=== PATIENT | female | born 1940 | race Caucasian/White ===

== ENCOUNTER 2021-11-30 19:09 | Inpatient (IN) | payer MEDICARE ==
[~2021-11-30] VITALS: Ht 167.6 cm; Wt 81.6 kg
--- NOTE | 2021-11-30 20:50 | NUR ---
BIBDTR C/O PT FEELING DEPRESSED, CARE FOR SELF LESS, WANTING PSYCH EVAL. PLACED IN BED 12. VITALS CHECKED. FAMILY MEMBER AT BEDSIDE
--- NOTE | 2021-11-30 21:00 | NUR ---
COVID SWAB DONE AND SENT TO LAB
[2021-11-30 21:19] LABS: BASOPHILS % (AUTO) 0.3 % (0.0-2.0); EOSINOPHILS % (AUTO) 2.9 % (0.0-6.0); HEMATOCRIT 42 % (33-45); HEMOGLOBIN 13.4 g/dL (11.5-14.8); LYMPHOCYTES # (AUTO) 3.8 K/uL (0.8-4.8); LYMPHOCYTES % (AUTO) 27.1 % (20.0-44.0); MEAN CORPUSCULAR HGB CONC 32 g/dl (31.0-36.0); MEAN CORPUSCULAR VOLUME 88 fL (82-100); MONOCYTES % (AUTO) 7.2 % (2.0-12.0); NEUTROPHILS # (AUTO) 8.8 K/uL (1.8-8.9); NEUTROPHILS % (AUTO) 62.5 % (43.0-81.0); PLATELET COUNT (AUTO) 350 K/uL (150-450); RED BLOOD CELL COUNT(AUTO) 4.83 MIL/uL (4.0-5.2); WHITE BLOOD COUNT (AUTO) 14.1 K/uL (4.3-11.0)
[2021-11-30 21:42] LABS: ALANINE AMINOTRANSFERASE 22 U/L (12-78); ALBUMIN 3.7 g/dL (3.4-5.0); ALKALINE PHOSPHATASE 57 U/L (46-116); ASPARTATE AMINOTRANSFERASE 9 U/L (15-37); BILIRUBIN,TOTAL 0.2 mg/dL (0.2-1.0); CALCIUM, SERUM 9.8 mg/dL (8.5-10.1); CARBON DIOXIDE 27 mmol/L (21-32); CHLORIDE 105 mmol/L (98-107); CREATININE 0.8 mg/dL (0.6-1.3); GLUCOSE 105 mg/dL (74-106); POTASSIUM 3.7 mmol/L (3.5-5.1); SODIUM SERUM 139 mmol/L (136-145); UREA NITROGEN, BLOOD 17 mg/dL (7-18)
[2021-11-30 21:49] LABS: ALCOHOL, BLOOD < 3 mg/dL (0-0)
--- NOTE | 2021-11-30 21:50 | NUR ---
PATIENT STILL CANNOT PASS OUT URINE. DAUGHTER SAID THEY WILL GIVE IT A TRY IN FEW MINUTES.
[2021-11-30 22:52] LABS: BILIRUBIN,URINE NEGATIVE (NEGATIVE); COLOR,URINE YELLOW (YELLOW); LEUKOCYTE ESTERASE ,URINE TRACE (NEGATIVE); NITRITE, URINE NEGATIVE (NEGATIVE); PROTEIN,URINE NEGATIVE (NEGATIVE); UGLUCOSE NEGATIVE (NEGATIVE); UROBILINOGEN,URINE 0.2 EU/dL (0.2)
[2021-11-30 23:15] LABS: SQUAMOUS EPITHELIAL CELL,UR Moderate /HPF (None Seen)
[2021-11-30 23:18] LABS: BACTERIA,URINE None seen /HPF (None Seen)
[2021-11-30 23:19] LABS: RBC,URINE 0-2 /HPF (0-2)
[2021-11-30] MEDS ORDERED: PARO10TA86 PO (23:41)
[2021-11-30] MEDS ORDERED: LITH600C PO (23:41)
[2021-11-30] MEDS ORDERED: AMLO2.5T4 PO (23:41)
[2021-11-30] MEDS ORDERED: RISP2TAB85 PO (23:48)
[2021-11-30] MEDS ORDERED: ALPR1TAB7 PO (23:48)
[2021-11-30] MEDS ORDERED: RISP0.5T65 PO (23:48)
--- NOTE | 2021-12-01 00:10 | NUR ---
REPORT GIVEN TO FA RN FOR CONTINUATION OF CARE.
--- NOTE | 2021-12-01 00:41 | NUR ---
PATIENT BEING TRANSFERRED TO [facility]
--- NOTE | 2021-12-01 00:45 | NUR ---
pt transported to room 218 via wheelchair without incident.
[2021-12-01] MEDS ORDERED: LORAZEPAM 0.5 MG TABLET PO PRN (01:30)
[2021-12-01] MEDS ORDERED: TEMAZEPAM 7.5 MG CAPSULE PO PRN (01:30)
[2021-12-01] MEDS ORDERED: MAGNESIUM HYDROXIDE 30 ML UDC PO PRN (01:30)
[2021-12-01] MEDS ORDERED: BLOOD SUGAR DIAGNOSTIC 1 EACH STRIP IN ONE (01:30)
--- NOTE | 2021-12-01 02:13 | NUR ---
GPS RN ADMITTING NOTES: PATIENT ARRIVED THIS UNIT ON A W/C WITH AN ER ESCORT. PATIENT IS VOLUNTARY. PER ER REPORT, PATIENT WAS BROUGHT TO ER BY DAUGHTER WITH COMPLAIN THAT PT HAS BEEN HAVING INCREASED DEPRESSION AND NOT CARING FOR HERSELF. PER DAUGHTER, PATIENT HAS BEEN DEALING WITH DEPRESSION FOR YEARS AND PATIENT PSYCHIATRIST RECENTLY MADE CHANGES TO HER MEDS BUT PATIENT CONDITION REMAINS THE SAME. UPON FACE TO FACE EVALUATION, PATIENT IS A/O X2-3, APPEARS DEPRESSED AND TIRED, FLAT AFFECT, ANXIOUS, FORGETFUL, PASSIVE, COOPERATIVE, PATIENT IS A POOR HISTORIAN, IT TOOK A WHILE FOR PATIENT TO REMEMBER DAY AND YEAR. REFUSED TO SIGN ADMISSION PAPER WORK BECAUSE PER PATIENT, "I AM TIRED AND MY WRITING IS HORRIBLE BECAUSE I HAD COVID EARLIER IN THE YEAR THAT AFFECTED MY HANDS". PATIENT BS90MG/DL. SKIN ASSESSMENT DONE, SKIN INTACT. REFUSED PNEUMONIA VACCINE. NO S/S OF DISTRESS, RESPIRATION EVEN AND UNLABORED WITH EQUAL RISE AND FALL OF THE CHEST, ON ROOM AIR. PATIENT IS UNDER THE PSYCHIATRIC CARE OF DR SHINE AND [facility]. PATIENT IS ORIENTED TO STAFF AND UNIT. PATIENT RIGHTS BOOKLET AND PRESCRIPTION MEDICATION GUIDE GIVEN TO PATIENT. PATIENT OFFERED FLUID AND SNACKS TOLERATED. ALL PATIENT CARE NEEDS HAVE BEEN MET ANTICIPATED. BED IN LOW LOCKED POSITION, SIDE RAILS UP X2 FOR SAFETY. WILL CONTINUE TO MONITOR FOR SAFETY, MOOD AND BEHAVIOR.
[2021-12-01] MEDS: ACETAMINOPHEN 325 MG TABLET PO PRN (03:57)
--- NOTE | 2021-12-01 04:03 | NUR ---
GPS RN NOTES: UNABLE TO SCAN PATIENT WRIST BAND. PATIENT C/O HEADACHE. TYLENOL 650MG GIVEN PO AT 0357. WILL CONTINUE TO MONITOR.
[2021-12-01 04:17] VITALS: BP 140/82
--- NOTE | 2021-12-01 06:45 | NUR ---
GPS RN NOTES: PATIENT DAUGHTER MEET KEATING HAS BEEN NOTIFIED OF PATIENT ADMISSION TO GPS AT 0635.
--- NOTE | 2021-12-01 07:03 | NUR ---
GPS RN CLOSING NOTES: PATIENT IS CURRENTLY SLEEPING. PATIENT SLEPT 5HRS THIS SHIFT. NO S/S OF DISTRESS. RESPIRATION EVEN AND UNLABORED WITH EQUAL RISE AND FALL OF THE CHEST, ON ROOM AIR. ALL PATIENT CARE NEEDS HAVE BEEN MET ANTICIPATED. WILL CONTINUE TO MONITOR Q15 FOR SAFETY, MOOD AND BEHAVIOR AND ENDORSE TO AM SHIFT.
[2021-12-01 08:00] VITALS: BP 162/88
[2021-12-01] MEDS: AMLODIPINE BESYLATE 2.5 MG TABLET PO SCH (08:43)
--- NOTE | 2021-12-01 08:43 | NUR ---
Patient c/o anxiety medicated with ativan 0.5mg x1 will continue to monitor .
--- NOTE | 2021-12-01 09:15 | NUR ---
MERA Initial Discharge Plan: Patient currently resides [place] home [facility] at [address], [place] [address]; ([phone]). Pt reported that she has caretakers at home and would want to return back home upon discharge. EMRA will work with the family, pt, and doctor to help coordinate appropriate discharge.
--- NOTE | 2021-12-01 09:15 | NUR ---
MERA Clinical Note: Pt is a voluntary pt. Pt was brought to the hospital because she was feeling depressed at home and the medications were not working. Patient currently resides at home [facility] at [address], [place] [address]; ([phone]). Pt reported that she has caretakers at home and would want to return back home upon discharge.
--- NOTE | 2021-12-01 09:17 | NUR ---
Treatment Plan: Pt refused to sign treatment plan and was suspicious of staff.
--- NOTE | 2021-12-01 10:26 | NUR ---
Individual Therapy: SW attempted to conduct therapy. Pt appeared to be depressed and tearful. She reported that she has depression. She reported to this policy writer sales that she is "sick" and has "mental disorder". SW actively listened and provided support.
--- NOTE | 2021-12-01 11:33 | NUR ---
MERA Family Contact: MERA spoke with patient's daughter Coty ([phone]) to gather collateral and discuss treatment/discharge plan. She reported that she is the DPOA and will send this machine sign writer the document. She reported that since June 2021, pt had covid and after having covid she decompensated. Daughter reported that she has caretakers at home 14/01. However, daughter reported that she might possibly want placement for pt and is looking into assisted livings.
[2021-12-01] MEDS: FLUOXETINE HCL 20 MG CAPSULE PO SCH (12:54)
[2021-12-01] MEDS: LORAZEPAM 0.5 MG TABLET PO PRN (12:54)
[2021-12-01] MEDS: busPIRone 5 MG TABLET PO SCH ×2 (12:54→17:57)
--- NOTE | 2021-12-01 12:56 | NUR ---
Patient c/o anxiety medicated with Ativan 0.5mg x1 will continue to monitor .
[2021-12-01 16:00] VITALS: BP 159/83
[2021-12-01] MEDS: risperiDONE 0.25 MG TABLET PO SCH (17:57)
--- NOTE | 2021-12-01 19:57 | NUR ---
GPS RN OPENING NOTES: RECEIVED PATIENT IN HALLWAY. A/O X1-2. FLAT AFFECT, DISORIENTED, DISORGANIZED, CONFUSED. WANDERING, ASKING FOR "THE DOOR TO THE PHARMACY", ASKING IF "THEY ARE HERE". PATIENT REORIENTED TO PRESENT SITUATION. PATIENT GIVEN WALKER TWICE TO USE FOR AMBULATION D/T UNSTEADY GAIT BUT LEAVES THEM IN THE DAY ROOM. DENIES PAIN, DENIES SI AT THIS TIME. NO S/S OF DISTRESS. RESPIRATION EVEN AND UNLABORED WITH EQUAL RISE AND FALL OF THE CHEST, ON ROOM AIR. OFFERED FLUID AND SNACKS TOLERATED. WILL CONTINUE TO MONITOR Q15 FOR MOOD, SAFETY AND BEHAVIOR.
[2021-12-01 20:14] VITALS: BP 154/86
[2021-12-01] MEDS: LITHIUM CARBONATE 150 MG CAPSULE PO SCH (21:23)
[2021-12-01] MEDS: risperiDONE 1 MG TABLET PO SCH (21:42)
--- NOTE | 2021-12-01 21:44 | NUR ---
GPS RN NOTES: RISPERIDONE 0.5MG WASTED PER PARTIAL DOSE ORDER.
[2021-12-02] MEDS: LORAZEPAM 0.5 MG TABLET PO PRN (02:08)
--- NOTE | 2021-12-02 02:15 | NUR ---
GPS RN NOTES: PATIENT WOKE UP FROM SLEEP AND BECAME ANXIOUS. PER PATIENT SHE HAD A NIGHTMARE. ATIVAN 0.5MG GIVEN PO AT 0208. WILL CONTINUE TO MONITOR
[2021-12-02 07:02] LABS: ALBUMIN 3.8 g/dL (3.4-5.0); BILIRUBIN,TOTAL 0.4 mg/dL (0.2-1.0); CALCIUM, SERUM 9.6 mg/dL (8.5-10.1); CREATININE 0.8 mg/dL (0.6-1.3); TOTAL PROTEIN, SERUM 7.2 g/dL (6.4-8.2)
[2021-12-02 07:03] LABS: CHOLESTEROL 226 mg/dL (<200); HDL CHOLESTEROL 52 mg/dL (40-60); LDL 141 mg/dL (0-99); TRIGLYCERIDES 156 mg/dL (30-150)
[2021-12-02 08:00] VITALS: BP 150/83
[2021-12-02] MEDS: LITHIUM CARBONATE 150 MG CAPSULE PO SCH ×2 (08:15→21:27)
[2021-12-02] MEDS: busPIRone 5 MG TABLET PO SCH ×3 (08:15→16:09)
[2021-12-02] MEDS: risperiDONE 0.25 MG TABLET PO SCH ×2 (08:16→16:09)
[2021-12-02] MEDS: AMLODIPINE BESYLATE 2.5 MG TABLET PO SCH (08:16)
--- NOTE | 2021-12-02 08:41 | NUR ---
Dr. Zhong seen pt. and pt. is complaining of nausea and ordered Zofran 4 mg po prn.
[2021-12-02] MEDS: ONDANSETRON 4 MG TAB.RAPDIS PO PRN (08:48)
--- NOTE | 2021-12-02 09:30 | NUR ---
RN Notes: Received pt. asleep in bed, breathing is even and unlabored. Ate 100% for breakfast and compliant on meds .Dr. Zhong seen pt. and pt. is complaining of nausea and ordered Zofran 4 mg po prn and given. Pt. is disorganized and needy, encouraged to verbalize feelings and motivated to take shower. Needs attended and will continue to monitor for safety.
[2021-12-02] MEDS: FLUOXETINE HCL 20 MG CAPSULE PO SCH (12:21)
[2021-12-02 16:00] VITALS: BP 143/84
[2021-12-02] MEDS: MAG HYDROX/AL HYDROX/SIMETH 30 ML UDC PO PRN (20:36)
[2021-12-02 20:50] VITALS: BP 154/80
[2021-12-02] MEDS: risperiDONE 1 MG TABLET PO SCH (21:26)
--- NOTE | 2021-12-03 01:34 | NUR ---
RN NOTES: RECEIVED PATIENT AWAKE IN BED, REQUEST TRANSFER FROM 218 TO 215-1, PLACED IN BED COMFORTABLY, BED IN LOW POSITION, CALL LIGHTS WITHIN REACH, ON ROOM AIR SATURATING WELL, NO RESP DISTRESS WAS OBSERVED, PATIENT ON MED COMPLIANT, NO CHANGES IN BEHAVIOR WAS OBSERVE, PATIENT KEPT CLEAN AND DRY ALL NEEDS MET WILL CONTINUE TO MONITOR.
[2021-12-03] MEDS: ACETAMINOPHEN 325 MG TABLET PO PRN (02:28)
[2021-12-03 07:25] LABS: BASOPHILS # (AUTO) 0.1 K/uL (0.0-0.2); BASOPHILS % (AUTO) 0.8 % (0.0-2.0); EOSINOPHILS % (AUTO) 1.6 % (0.0-6.0); HEMATOCRIT 44 % (33-45); HEMOGLOBIN 14.4 g/dL (11.5-14.8); LYMPHOCYTES # (AUTO) 2.5 K/uL (0.8-4.8); LYMPHOCYTES % (AUTO) 21.7 % (20.0-44.0); MEAN CORPUSCULAR HGB CONC 33 g/dl (31.0-36.0); MEAN CORPUSCULAR VOLUME 87 fL (82-100); MONOCYTES # (AUTO) 0.7 K/uL (0.1-1.30); MONOCYTES % (AUTO) 6.6 % (2.0-12.0); NEUTROPHILS # (AUTO) 7.8 K/uL (1.8-8.9); NEUTROPHILS % (AUTO) 69.3 % (43.0-81.0); PLATELET COUNT (AUTO) 403 K/uL (150-450); RED BLOOD CELL COUNT(AUTO) 5.08 MIL/uL (4.0-5.2); WHITE BLOOD COUNT (AUTO) 11.3 K/uL (4.3-11.0)
[2021-12-03] MEDS: LORAZEPAM 0.5 MG TABLET PO PRN ×3 (07:55→19:57)
--- NOTE | 2021-12-03 07:55 | NUR ---
RN-CO: ATIVAN 0.5 MG PO GIVEN FOR ANXIETY.
[2021-12-03] MEDS: LITHIUM CARBONATE 150 MG CAPSULE PO SCH ×2 (08:01→20:03)
[2021-12-03] MEDS: busPIRone 5 MG TABLET PO SCH ×3 (08:01→16:01)
[2021-12-03] MEDS: AMLODIPINE BESYLATE 2.5 MG TABLET PO SCH (08:02)
[2021-12-03] MEDS: risperiDONE 0.25 MG TABLET PO SCH ×2 (08:02→16:01)
[2021-12-03 08:05] VITALS: BP 152/79
[2021-12-03 08:42] LABS: CALCIUM, SERUM 9.9 mg/dL (8.5-10.1); CREATININE 0.8 mg/dL (0.6-1.3); POTASSIUM 4.1 mmol/L (3.5-5.1)
--- NOTE | 2021-12-03 10:01 | NUR ---
RN-CO: Received patient awake, denied pain but anxious. Ativan was given. She is pleasant to staff but she needs reassurance. We will continue plan of care.
[2021-12-03] MEDS: FLUOXETINE HCL 20 MG CAPSULE PO SCH (13:43)
--- NOTE | 2021-12-03 13:43 | NUR ---
RN-CO: ATIVAN 0.5 MG PO GIVEN FOR ANXIETY.
[2021-12-03 16:07] VITALS: BP 151/88
--- NOTE | 2021-12-03 19:15 | NUR ---
GPS RN NOTES RECEIVED PATIENT IN BED AWAKE, ALERT AND ORIENTED X2. NO S/SX ACUTE DISTRESS NOTED. PATIENT REMAINS ANXIOUS, FORGETFUL AND MED COMPLIANT. NO VERBALIZATION OF THOUGHTS AND FEELINGS. SAFETY PRECAUTIONS MAINTAINED. WILL CONTINUE TO MONITOR Q15MIN ROUNDS FOR SAFETY AND BEHAVIOR.
[2021-12-03 21:46] VITALS: BP 159/91
[2021-12-03] MEDS: risperiDONE 1 MG TABLET PO SCH (21:54)
[2021-12-04 08:00] VITALS: BP 144/64
[2021-12-04] MEDS: AMLODIPINE BESYLATE 2.5 MG TABLET PO SCH (09:02)
[2021-12-04] MEDS: LITHIUM CARBONATE 150 MG CAPSULE PO SCH ×2 (09:02→21:27)
[2021-12-04] MEDS: risperiDONE 0.25 MG TABLET PO SCH ×2 (09:02→17:46)
[2021-12-04] MEDS: LORAZEPAM 0.5 MG TABLET PO PRN ×2 (09:03→17:46)
[2021-12-04] MEDS: busPIRone 5 MG TABLET PO SCH ×3 (09:03→17:46)
--- NOTE | 2021-12-04 09:04 | NUR ---
Patient c/o anxiety medicated with Ativan 0.5mg x1 will continue to monitor .
[2021-12-04] MEDS ORDERED: Fluoxetine 10 mg capsule PO SCH (13:00)
--- NOTE | 2021-12-04 14:02 | NUR ---
MERA Family Contact: SW spoke with patient's daughter Coty ([phone]) and she reported that she has been looking into assisted living called [facility] located at [address] [place], [place], [address]; ([phone]).
[2021-12-04] MEDS ORDERED: KETOROLAC TROMETHAMINE INJ 30 MG/ML VIAL ONE (15:59)
[2021-12-04 16:00] VITALS: BP 140/79
--- NOTE | 2021-12-04 16:17 | NUR ---
Individual Counseling: SW met with pt. in activity room and completed individual counseling. Pt. is delusional staying she is terrified of injection that "goes up her nose". Pt. stated the early childhood coordinator is her psychiatrist. SW provided reality orientation. Pt. was labile and had bouts of "crying" and expressed great anxiety and fear about "injection up her nose". Pt. was fixated on delusion. Pt. required constant redirection. SW educated pt. about positive coping mechanism: "thinking about her favorite place". Pt. stated [place] place is the beach and appeared grounded, relaxed while she described it. SW encouraged pt. to use this technique when she is feeling overwhelmed. Pt. is agreeable.
--- NOTE | 2021-12-04 17:47 | NUR ---
Patient c/o anxiety medicated with Ativan 0.5mg x1 will continue to monitor .
[2021-12-04 19:36] VITALS: BP 130/77
--- NOTE | 2021-12-04 20:32 | NUR ---
GPS RN NOTES RECEIVED PATIENT IN BED AAOX2. NO SOB/DISTRESS NOTED. NO VERBALIZATION OF THOUGHTS AND FEELINGS. SAFETY PRECAUTIONS MAINTAINED. WILL CONTINUE TO MONITOR Q15MIN ROUNDS FOR SAFETY AND BEHAVIOR.
[2021-12-04] MEDS: risperiDONE 1 MG TABLET PO SCH (21:28)
[2021-12-05] MEDS: MAG HYDROX/AL HYDROX/SIMETH 30 ML UDC PO PRN (04:35)
--- NOTE | 2021-12-05 07:48 | NUR ---
DPOA Document: SW received DPOA documents. Pt's daughter SHARMAINE Ansari. SW placed in pt's chart.
[2021-12-05 08:00] VITALS: BP 133/75
[2021-12-05] MEDS: busPIRone 5 MG TABLET PO SCH ×3 (08:06→16:40)
[2021-12-05] MEDS: AMLODIPINE BESYLATE 2.5 MG TABLET PO SCH (08:07)
[2021-12-05] MEDS: LITHIUM CARBONATE 150 MG CAPSULE PO SCH ×2 (08:07→21:25)
[2021-12-05] MEDS: risperiDONE 0.25 MG TABLET PO SCH ×3 (08:07→16:41)
[2021-12-05] MEDS: LORAZEPAM 0.5 MG TABLET PO PRN (09:09)
--- NOTE | 2021-12-05 09:09 | NUR ---
RN-CO: ATIVAN 0.5 MG PO GIVEN FOR RESTLESSNESS AND CRYING SPELLS.
--- NOTE | 2021-12-05 09:33 | NUR ---
RN-CO: Received patient awake, denied pain but anxious manifested by crying spells and pacing in the hallway. Ativan was given. She is pleasant to staff but she needs reassurance. We will continue plan of care.
[2021-12-05] MEDS: Fluoxetine 10 mg capsule PO SCH (12:51)
[2021-12-05] MEDS: LORAZEPAM 0.5 MG TABLET PO SCH ×2 (12:51→16:41)
--- NOTE | 2021-12-05 14:10 | NUR ---
RN-CO: DR DE LEON MADE AWARE OF THE PT'S ADVANCE DIRECTIVE. PER MD, PT IS STILL " FULL CODE."
[2021-12-05 16:00] VITALS: BP 133/79
--- NOTE | 2021-12-05 19:15 | NUR ---
GPS RN NOTES PATIENT IN BED AWAKE, ALERT AND ORIENTED X2. NO ACUTE DISTRESS NOTED. PATIENT IS PLEASANT, FORGETFUL, ANXIOUS AND PT. NEEDS CONSTANT REASSURANCE. NO VERBALIZATION OF THOUGHTS AND FEELINGS. SAFETY PRECAUTIONS MAINTAINED. WILL CONTINUE TO MONITOR Q15MIN ROUNDS FOR SAFETY AND BEHAVIOR.
[2021-12-05 20:28] VITALS: BP 120/72
[2021-12-05] MEDS: risperiDONE 1 MG TABLET PO SCH (21:25)
[2021-12-06] MEDS: ACETAMINOPHEN 325 MG TABLET PO PRN (04:22)
[2021-12-06 08:00] VITALS: BP 135/77
[2021-12-06] MEDS: LORAZEPAM 0.5 MG TABLET PO SCH ×3 (08:19→16:18)
[2021-12-06] MEDS: LITHIUM CARBONATE 150 MG CAPSULE PO SCH ×2 (08:23→22:20)
[2021-12-06] MEDS: risperiDONE 0.25 MG TABLET PO SCH ×3 (08:23→16:18)
[2021-12-06] MEDS: AMLODIPINE BESYLATE 2.5 MG TABLET PO SCH (08:24)
[2021-12-06] MEDS: busPIRone 5 MG TABLET PO SCH ×3 (08:24→16:18)
[2021-12-06] MEDS: Fluoxetine 10 mg capsule PO SCH (12:30)
[2021-12-06 16:00] VITALS: BP 129/77
--- NOTE | 2021-12-06 17:27 | NUR ---
RN-NOTES PATIENT IS VISIBLE IN THE UNIT ATTENDING GROUPS ,WATCHING TV IN THE DAY ROOM,CALM, NO ACUTE DISTRESS NOTED.ABLE TO MAKE NEEDS KNOWN TO THE STAFF. AMBULATORY STEADY GAIT.ALL NEEDS ATTENDED AND ANTICIPATED. WILL CONT. MONITORING FOR SAFETY AND BEHAVIOR.WILL ENDORSE TO INCOMING NURSE FOR CONTINUITY OF CARE.
--- NOTE | 2021-12-06 19:30 | NUR ---
GPS RN OPENING NOTES: RECEIVED PATIENT SLEEPING IN BED. EASILY AROUSABLE. A/O X2, FLAT AFFECT, DISORGANIZED. DENIES PAIN, DENIES SI. NO S/S OF DISTRESS. RESPIRATION EVEN AND UNLABORED WITH EQUAL RISE AND FALL OF THE CHEST, ON ROOM AIR. OFFERED FLUID AND SNACKS TOLERATED. WILL CONTINUE TO MONITOR Q15 FOR MOOD, SAFETY AND BEHAVIOR.
[2021-12-06 20:00] VITALS: BP 128/73
[2021-12-06] MEDS: risperiDONE 1 MG TABLET PO SCH (22:19)
[2021-12-07 08:00] VITALS: BP_SYST 126; BP_SYST 144; BP_DIAS 67; BP_DIAS 79
[2021-12-07] MEDS: LITHIUM CARBONATE 150 MG CAPSULE PO SCH ×2 (08:20→21:25)
[2021-12-07] MEDS: busPIRone 5 MG TABLET PO SCH ×3 (08:20→16:19)
[2021-12-07] MEDS: LORAZEPAM 0.5 MG TABLET PO SCH ×3 (08:20→16:19)
[2021-12-07] MEDS: AMLODIPINE BESYLATE 2.5 MG TABLET PO SCH (08:21)
[2021-12-07] MEDS: risperiDONE 0.25 MG TABLET PO SCH ×3 (08:21→16:19)
--- NOTE | 2021-12-07 10:32 | NUR ---
[facility]: MERA received a call from Donnie president and chief executive officer from [facility] ([phone]) who stated that pt is accepted. He reported that pt's primary doctor is filling out the 602A form. He requested for this commercial real estate underwriter to fax patient's medication list (F: [phone]), MERA faxed medications. He requested chest x-ray and covid rapid test. MERA will notify staff.
[2021-12-07] MEDS: Fluoxetine 10 mg capsule PO SCH (12:14)
[2021-12-07] MEDS: MAG HYDROX/AL HYDROX/SIMETH 30 ML UDC PO PRN ×2 (14:35→21:26)
--- NOTE | 2021-12-07 14:38 | NUR ---
RN-NOTES PATIENT COMPLAINED OF INDIGESTION, MAALOX 30ML GIVEN PRN ORDER. WILL CONT. MONITORING.
--- NOTE | 2021-12-07 15:35 | NUR ---
RN-NOTES PATIENT STATED THE MAALOX HELPS HER UPSET STOMACH.
--- NOTE | 2021-12-07 18:34 | NUR ---
RN-NOTES PATIENT IS VISIBLE IN THE UNIT ATTENDING GROUPS ,WATCHING TV IN THE DAY ROOM,CALM, NO ACUTE DISTRESS NOTED.ABLE TO MAKE NEEDS KNOWN TO THE STAFF. COMPLIANT WITH MEDICATIONS.AMBULATORY STEADY GAIT.ALL NEEDS ATTENDED AND ANTICIPATED. WILL CONT. MONITORING FOR SAFETY AND BEHAVIOR.WILL ENDORSE TO INCOMING NURSE FOR CONTINUITY OF CARE.
--- NOTE | 2021-12-07 19:35 | NUR ---
GPS RN OPENING NOTES: RECEIVED PATIENT IN BED, AWAKE, A/O X2, FLAT AFFECT, PASSIVE, WITHDRAWN, DISORGANIZED WITH C/O INDIGESTION. OFFERED MAALOX, BUT PATIENT WANTED TO WAIT FOR WHILE. DENIES PAIN, DENIES SI. NO S/S OF DISTRESS. RESPIRATION EVEN AND UNLABORED WITH EQUAL RISE AND FALL OF THE CHEST, ON ROOM AIR. OFFERED FLUID AND SNACKS TOLERATED. BED IN LOW LOCKED POSITION, SIDE RAILS UP X2 FOR SAFETY. WILL CONTINUE TO MONITOR Q15 FOR MOOD, SAFETY AND BEHAVIOR.
[2021-12-07 20:00] VITALS: BP 158/91
[2021-12-07] MEDS: risperiDONE 1 MG TABLET PO SCH (21:25)
--- NOTE | 2021-12-07 21:30 | NUR ---
GPS RN NOTES: PATIENT C/O INDIGESTION. MAALOX 30ML GIVEN PO AT 2125. WILL CONTINUE TO MONITOR.
--- NOTE | 2021-12-07 21:32 | NUR ---
GPS RN NOTES: RISPERDAL 0.5MG WASTED PER PARTIAL DOSE ORDER.
[2021-12-08 08:00] VITALS: BP 154/99
[2021-12-08] MEDS: AMLODIPINE BESYLATE 2.5 MG TABLET PO SCH (08:19)
[2021-12-08] MEDS: risperiDONE 0.25 MG TABLET PO SCH ×3 (08:19→17:16)
[2021-12-08] MEDS: LORAZEPAM 0.5 MG TABLET PO SCH ×3 (08:19→17:17)
[2021-12-08] MEDS: busPIRone 5 MG TABLET PO SCH ×3 (08:19→17:16)
[2021-12-08] MEDS: LITHIUM CARBONATE 150 MG CAPSULE PO SCH ×2 (08:19→20:49)
--- NOTE | 2021-12-08 09:48 | NUR ---
MERA Family Contact: MERA spoke with patient's daughter Coty SCHMID ([phone]) who stated she would want this grant writer to find a facility. MERA will send clinicals to [facility].
--- NOTE | 2021-12-08 09:49 | NUR ---
SNF Referral: SW sent clinicals to [facility] to Stacey rodriguez ([phone]) for placement. SW sent H & P, progress notes, and medication list.
[2021-12-08 10:29] LABS: BASOPHILS # (AUTO) 0.1 K/uL (0.0-0.2); BASOPHILS % (AUTO) 0.5 % (0.0-2.0); EOSINOPHILS % (AUTO) 0.7 % (0.0-6.0); HEMATOCRIT 42 % (33-45); HEMOGLOBIN 13.8 g/dL (11.5-14.8); LYMPHOCYTES # (AUTO) 1.8 K/uL (0.8-4.8); LYMPHOCYTES % (AUTO) 14.4 % (20.0-44.0); MEAN CORPUSCULAR HGB CONC 33 g/dl (31.0-36.0); MEAN CORPUSCULAR VOLUME 85 fL (82-100); MONOCYTES # (AUTO) 0.7 K/uL (0.1-1.30); MONOCYTES % (AUTO) 5.3 % (2.0-12.0); NEUTROPHILS # (AUTO) 9.8 K/uL (1.8-8.9); NEUTROPHILS % (AUTO) 79.1 % (43.0-81.0); PLATELET COUNT (AUTO) 393 K/uL (150-450); RED BLOOD CELL COUNT(AUTO) 4.88 MIL/uL (4.0-5.2); WHITE BLOOD COUNT (AUTO) 12.4 K/uL (4.3-11.0)
--- NOTE | 2021-12-08 10:41 | NUR ---
SNF Contact: SW spoke with [facility] to Stacey rodriguez ([phone]) who stated pt is accepted.
[2021-12-08 10:53] LABS: ALANINE AMINOTRANSFERASE 26 U/L (12-78); ALKALINE PHOSPHATASE 61 U/L (46-116); ASPARTATE AMINOTRANSFERASE 12 U/L (15-37); BILIRUBIN,TOTAL 0.4 mg/dL (0.2-1.0); CALCIUM, SERUM 9.7 mg/dL (8.5-10.1); CARBON DIOXIDE 28 mmol/L (21-32); CHLORIDE 106 mmol/L (98-107); CREATININE 0.8 mg/dL (0.6-1.3); GLUCOSE 109 mg/dL (74-106); SODIUM SERUM 138 mmol/L (136-145); TOTAL PROTEIN, SERUM 7.5 g/dL (6.4-8.2); UREA NITROGEN, BLOOD 16 mg/dL (7-18)
[2021-12-08] MEDS ORDERED: HYDROCODONE/APAP 5/325MG TABLET PO PRN (12:00)
[2021-12-08] MEDS: Fluoxetine 10 mg capsule PO SCH (12:43)
--- NOTE | 2021-12-08 14:15 | NUR ---
RN Notes: Assumed care, pt. in the dining room and watching tv, interacting to staffs, no sign of distress and no agitation noted. Will continue to monitor for safety.
[2021-12-08 15:10] LABS: BILIRUBIN,URINE NEGATIVE (NEGATIVE); COLOR,URINE YELLOW (YELLOW); LEUKOCYTE ESTERASE ,URINE NEGATIVE (NEGATIVE); NITRITE, URINE NEGATIVE (NEGATIVE); PH,URINE 7.5 (5.0-8.0); PROTEIN,URINE NEGATIVE (NEGATIVE); UGLUCOSE NEGATIVE (NEGATIVE); UROBILINOGEN,URINE 0.2 EU/dL (0.2)
[2021-12-08 16:00] VITALS: BP 130/71
--- NOTE | 2021-12-08 16:30 | NUR ---
GPS RN NOTES RECEIVED REPORT ON THIS PATIENT WHO IS LAYING IN CHAIR WATCHING TELEVISION. NO APPARENT DISTRESS AT THIS TIME. WILL CONTINUE TO MONITOR.
--- NOTE | 2021-12-08 19:00 | NUR ---
GPS RN CLOSING NOTES PATIENT ALERT AND ORIENTED, NO COMPLAINTS OF PAIN OR DISCOMFORT AT THIS TIME, LAYING IN BED. ALL NEEDS MET. REPORT GIVEN TO CONSTRUCTION SUPERVISOR/CARPENTER FOR AIDA.
--- NOTE | 2021-12-08 19:37 | NUR ---
GPS RN OPENING NOTES: RECEIVED PATIENT IN BED SLEEPING BUT EASILY AROUSABLE. FLAT AFFECT, PASSIVE, DISORGANIZED. DENIES PAIN, DENIES SI. NO S/S OF DISTRESS. RESPIRATION EVEN AND UNLABORED WITH EQUAL RISE AND FALL OF THE CHEST, ON ROOM AIR. BED IN LOW LOCKED POSITION, SIDE RAILS UP X2 FOR SAFETY. WILL CONTINUE TO MONITOR Q15 FOR MOOD, SAFETY AND BEHAVIOR.
[2021-12-08 20:59] VITALS: BP 140/74
[2021-12-08] MEDS: risperiDONE 1 MG TABLET PO SCH (21:03)
--- NOTE | 2021-12-08 21:04 | NUR ---
GPS RN NOTES: RISPERDAL 0.5MG WASTED PER PARTIAL DOSE ORDER.
--- NOTE | 2021-12-09 06:47 | NUR ---
GPS RN CLOSING NOTES: PATIENT IS LAYING IN BED AWAKE, A/O X3. PATIENT SLEPT 9HRS THIS SHIFT. NO S/S OF DISTRESS. RESPIRATION EVEN AND UNLABORED WITH EQUAL RISE AND FALL OF THE CHEST, ON ROOM AIR. ALL PATIENT CARE NEEDS HAVE BEEN MET ANTICIPATED. WILL CONTINUE TO MONITOR Q15 FOR SAFETY, MOOD AND BEHAVIOR AND ENDORSE TO AM SHIFT.
[2021-12-09 08:00] VITALS: BP 133/79
[2021-12-09] MEDS: busPIRone 5 MG TABLET PO SCH ×3 (08:24→16:22)
[2021-12-09] MEDS: LORAZEPAM 0.5 MG TABLET PO SCH ×3 (08:24→16:22)
[2021-12-09] MEDS: risperiDONE 0.25 MG TABLET PO SCH ×3 (08:25→16:22)
[2021-12-09] MEDS: LITHIUM CARBONATE 150 MG CAPSULE PO SCH ×2 (08:25→21:28)
[2021-12-09] MEDS: AMLODIPINE BESYLATE 2.5 MG TABLET PO SCH (08:26)
[2021-12-09] MEDS: Fluoxetine 10 mg capsule PO SCH (12:15)
[2021-12-09] MEDS: MAG HYDROX/AL HYDROX/SIMETH 30 ML UDC PO PRN (15:57)
[2021-12-09 16:00] VITALS: BP 133/61
--- NOTE | 2021-12-09 16:01 | NUR ---
RN-NOTES PATIENT COMPLAINED OF INDIGESTION, MAALOX 30ML GIVEN PRN ORDER. WILL CONT. MONITORING.
--- NOTE | 2021-12-09 17:05 | NUR ---
RN-NOTES PATIENT STATED THE MAALOX HELPS HER INDIGESTION.
[2021-12-09 20:15] VITALS: BP 134/68
[2021-12-09] MEDS: risperiDONE 1 MG TABLET PO SCH (21:28)
[2021-12-10] MEDS: ACETAMINOPHEN 325 MG TABLET PO PRN (05:13)
--- NOTE | 2021-12-10 05:13 | NUR ---
RN NOTES PT COMPLAINED OF STOMACH PAIN. ADMINISTERED TYLENOL PER MD ORDER. VS WNL. WILL CONTINUE TO MONITOR.
--- NOTE | 2021-12-10 07:45 | NUR ---
RN OPENING NOTES RECEIVED PATIENT IN THE ROOM EATING BREAKFAST, A /O X2. APPROPRIATE AFFECT, ANXIOUS. ENCOURAGED TO VERBALIZE FEELING AND VALIDATE. NO DISCOMFORTS NOTED AT THIS TIME. NO S/S OF DISTRESS. RESPIRATION EVEN AND UNLABORED WITH EQUAL RISE AND FALL OF THE CHEST, ON ROOM AIR. WILL CONTINUE TO MONITOR FOR SAFETY AND BEHAVIOR.
[2021-12-10] MEDS: MAG HYDROX/AL HYDROX/SIMETH 30 ML UDC PO PRN (07:55)
[2021-12-10 08:00] VITALS: BP 137/71
--- NOTE | 2021-12-10 08:06 | NUR ---
PATIENT COMPLAINED OF STOMACH UPSET. MAALOX PRN GIVEN. WILL CONTINUE TO MONITOR PATIENT.
[2021-12-10] MEDS: LITHIUM CARBONATE 150 MG CAPSULE PO SCH ×2 (08:59→21:10)
[2021-12-10] MEDS: LORAZEPAM 0.5 MG TABLET PO SCH ×3 (09:00→17:03)
[2021-12-10] MEDS: risperiDONE 0.25 MG TABLET PO SCH ×3 (09:00→17:03)
[2021-12-10] MEDS: busPIRone 5 MG TABLET PO SCH ×3 (09:00→17:03)
[2021-12-10] MEDS: AMLODIPINE BESYLATE 2.5 MG TABLET PO SCH (09:00)
[2021-12-10] MEDS: Fluoxetine 10 mg capsule PO SCH (12:32)
[2021-12-10 16:00] VITALS: BP 119/65
[2021-12-10 19:52] VITALS: BP 126/62
[2021-12-10] MEDS: risperiDONE 1 MG TABLET PO SCH (21:10)
[2021-12-11 08:00] VITALS: BP 135/73
[2021-12-11] MEDS: risperiDONE 0.25 MG TABLET PO SCH ×3 (08:21→17:22)
[2021-12-11] MEDS: LORAZEPAM 0.5 MG TABLET PO SCH ×3 (08:21→17:23)
[2021-12-11] MEDS: LITHIUM CARBONATE 150 MG CAPSULE PO SCH ×2 (08:21→21:39)
[2021-12-11] MEDS: busPIRone 5 MG TABLET PO SCH ×3 (08:21→17:22)
[2021-12-11] MEDS: AMLODIPINE BESYLATE 2.5 MG TABLET PO SCH (08:21)
[2021-12-11] MEDS: MAG HYDROX/AL HYDROX/SIMETH 30 ML UDC PO PRN (10:45)
--- NOTE | 2021-12-11 11:17 | NUR ---
RN-CO: PATIENT IS ANXIOUS AND PREOCCUPIED, RESTLESS BUT SHE IS COMPLIANT WITH HER MEDICATIONS. SHE NEEDS CONSTANT REASSURANCE.
[2021-12-11] MEDS: Fluoxetine 10 mg capsule PO SCH (12:36)
[2021-12-11] MEDS: ONDANSETRON 4 MG TAB.RAPDIS PO PRN ×2 (14:44→15:46)
[2021-12-11 16:00] VITALS: BP 117/67
--- NOTE | 2021-12-11 19:45 | NUR ---
GPS RN NOTE RECEIVED PATIENT IN BED RESTING A/O X 2. NO S/S OF PAIN NOTED AT THIS TIME. ON ROOM AIR, NO DISTRESS OR SHORTNESS OF BREATH NOTED. PATIENT IS COMPLIANT WITH MEDICATIONS. PATIENT DENIES SUICIDAL AND HOMICIDAL IDEATIONS AT THIS TIME. FALL AND SAFETY MEASURES IN PLACE, BED IN LOW AND LOCK POSITION, CALL LIGHT AND TABLE WITHIN EASY REACH, SIDE RAILS UP X2. WILL CONTINUE TO MONITOR THROUGHOUT THE SHIFT.
[2021-12-11 20:34] VITALS: BP 136/73
[2021-12-11] MEDS: risperiDONE 1 MG TABLET PO SCH (21:38)
[2021-12-11] MEDS: MEMANTINE HCL 5 MG TABLET PO SCH (21:39)
[2021-12-12] MEDS: MAG HYDROX/AL HYDROX/SIMETH 30 ML UDC PO PRN (05:38)
--- NOTE | 2021-12-12 06:46 | NUR ---
GPS RN CLOSING NOTE PATIENT ON BED A/O X 2, PT NOTED TO BE CRYING ON BED DUE TO BLOATED STOMACH, PRN MEDS GIVEN ORDERED, ON ROOM AIR, NO DISTRESS OR SHORTNESS OF BREATH NOTED. PATIENT IS COMPLIANT WITH MEDICATIONS. ALL DUE MEDS GIVEN MD ORDERED. FALL AND SAFETY MEASURES IN PLACE, BED IN LOWEST AND LOCK POSITION, CALL LIGHT AND TABLE WITHIN EASY REACH, SIDE RAILS UP X2. WILL ENDORSE TO AM SHIFT FOR AIDA.
[2021-12-12 08:00] VITALS: BP 139/81
[2021-12-12] MEDS: ONDANSETRON 4 MG TAB.RAPDIS PO PRN ×2 (08:25→16:42)
[2021-12-12] MEDS: busPIRone 5 MG TABLET PO SCH ×3 (08:25→16:42)
[2021-12-12] MEDS: AMLODIPINE BESYLATE 2.5 MG TABLET PO SCH (08:25)
[2021-12-12] MEDS: LITHIUM CARBONATE 150 MG CAPSULE PO SCH ×2 (08:25→21:23)
[2021-12-12] MEDS: LORAZEPAM 0.5 MG TABLET PO SCH ×3 (08:25→16:42)
[2021-12-12] MEDS: risperiDONE 0.25 MG TABLET PO SCH ×3 (08:25→16:42)
[2021-12-12] MEDS: MEMANTINE HCL 5 MG TABLET PO SCH ×2 (08:26→21:23)
--- NOTE | 2021-12-12 09:38 | NUR ---
SW Family Contact: SW left a voicemail for pt's Coty ([phone]) and left a detailed voicemail that pt will be discharge to [facility] on 12/14.
--- NOTE | 2021-12-12 10:03 | NUR ---
RN-CO: PATIENT REMAINS PREOCCUPIED WITH HER SOMATIC ISSUES. ANXIOUS, NEEDS ATTENTION MOST OF THE TIME. I WILL CONTINUE TO MONITOR.
[2021-12-12] MEDS: Fluoxetine 10 mg capsule PO SCH (12:07)
[2021-12-12 16:00] VITALS: BP 135/68
--- NOTE | 2021-12-12 16:42 | NUR ---
RN-CO: PATIENT C/O NAUSEA. ZOFRAN 4 MG PO GIVEN.
[2021-12-12 20:18] VITALS: BP 148/79
[2021-12-12] MEDS: risperiDONE 1 MG TABLET PO SCH (21:23)
[2021-12-13] MEDS: ACETAMINOPHEN 325 MG TABLET PO PRN (02:28)
[2021-12-13] MEDS: MAG HYDROX/AL HYDROX/SIMETH 30 ML UDC PO PRN (06:16)
[2021-12-13 08:00] VITALS: BP_SYST 139; BP_DIAS 58; BP_DIAS 68
[2021-12-13] MEDS: MEMANTINE HCL 5 MG TABLET PO SCH ×2 (08:19→21:16)
[2021-12-13] MEDS: risperiDONE 0.25 MG TABLET PO SCH ×3 (08:19→16:26)
[2021-12-13] MEDS: LITHIUM CARBONATE 150 MG CAPSULE PO SCH ×2 (08:19→21:17)
[2021-12-13] MEDS: busPIRone 5 MG TABLET PO SCH ×3 (08:19→16:26)
[2021-12-13] MEDS: LORAZEPAM 0.5 MG TABLET PO SCH ×3 (08:19→16:26)
[2021-12-13] MEDS: AMLODIPINE BESYLATE 2.5 MG TABLET PO SCH (08:20)
[2021-12-13] MEDS: Fluoxetine 10 mg capsule PO SCH (12:05)
--- NOTE | 2021-12-13 14:44 | NUR ---
MERA Family Contact: MERA received voicemail for pt.'s daughter, Coty ([phone]) requesting [facility] address. MERA called Coty and notified her that the pt. will be discharging around 1 pm tomorrow to [facility] and provided her with the address and phone number and Coty was agreeable.
[2021-12-13 16:00] VITALS: BP 114/70
--- NOTE | 2021-12-13 18:16 | NUR ---
RN-NOTES PATIENT IS VISIBLE IN THE UNIT CALM AND COOPERATIVE ABLE TO MAKE NEEDS KNOWN TO THE STAFF,PARTICIPATES IN THE GROUP.COMPLIANT WITH MEDICATIONS,NO ACUTE DISTRESS NOTED. AMBULATORY STEADY GAIT.WILL CONT. MONITORING FOR SAFETY AND BEHAVIOR. WILL ENDORSE TO INCOMING NURSE FOR CONTINUITY OF CARE.
[2021-12-13 20:00] VITALS: BP 124/70
[2021-12-13] MEDS: risperiDONE 1 MG TABLET PO SCH (21:16)
[2021-12-14 08:00] VITALS: BP 133/68
--- NOTE | 2021-12-14 08:05 | NUR ---
SW Discharge Note: Patient will be discharged to [facility] [address], [place] [address] ([phone]). Please arrange ambulance transportation at 1PM. Spoke with Noemí, Admin Coordinator at the facility who states they are ready to accept the patient today. Patients daughter Coty ([phone]) who is agreeable of dc. Patient is alert and oriented x2, is unable to plan for self-care at this time, however, is willing to accept care at [facility]. Patient denies any suicidal or homicidal ideation. Patient will follow-up at the facility with Dr. Pizano (Psychiatrist) [address], [place] [address]; ([phone])and (Spout Liner Helper) Dr. Zhong [address], [place] [address]; ([phone]). Patient presents with euthymic mood and congruent affect.
[2021-12-14] MEDS: LORAZEPAM 0.5 MG TABLET PO SCH ×2 (08:46→12:00)
[2021-12-14 08:47] VITALS: BP 133/68
[2021-12-14] MEDS: MEMANTINE HCL 5 MG TABLET PO SCH (08:47)
[2021-12-14] MEDS: LITHIUM CARBONATE 150 MG CAPSULE PO SCH (08:47)
[2021-12-14] MEDS: risperiDONE 0.25 MG TABLET PO SCH ×2 (08:47→12:00)
[2021-12-14] MEDS: AMLODIPINE BESYLATE 2.5 MG TABLET PO SCH (08:47)
[2021-12-14] MEDS: busPIRone 5 MG TABLET PO SCH ×2 (08:47→12:00)
[2021-12-14] MEDS: Fluoxetine 10 mg capsule PO SCH (12:00)
--- NOTE | 2021-12-14 13:16 | NUR ---
GPS DISCHARGE NOTE: PATIENT 81 Y/O FEMALE DISCHARGE TODAY TO [facility],BY AMBULANCE TO TRANSPORT.PATIENT LEFT THE UNIT AT 1305 IN STABLE CONDITION, VSS, PATIENT DENIES SI/HI/AVH ,DENIES FEELING DEPRESSED. PATIENT COOPERATIVE AND MEDICATIONS AND TX , NO C/O PAIN OR ANY DISCOMFORT. PATIENT SKIN IS CLEAN AND INTACT . EXIT CARE DONE PRINTED, SIGN AND GIVEN TO PATIENT, ALL BELONGINGS AND VALUABLES RETUNED TO PATIENT.PATIENT SIGN BELONGING LIST . REPORT GIVEN TO ALETHA AMANDA IN THE FACILITY.DR SHINE AND DR. BAXTER RECONCILED MEDICATIONS.
== END 2021-12-14 13:05 | disposition home or self-care (01) | DRG 885 ==
LOC: ER 19:14 → GPS 12-01 00:20
PROVIDERS: ADMIT Psychiatry & Neurology Psychosomatic Medicine; ATTEND Student in an Organized Health Care Education/Training Program
DX: F31.81 Bipolar II disorder (principal); F01.50 Vascular dementia, unspecified severity, without behavioral disturbance, psychotic disturbance, mood disturbance, and anxiety; F41.9 Anxiety disorder, unspecified; Z20.822 Contact with and (suspected) exposure to COVID-19; F42.9 Obsessive-compulsive disorder, unspecified; I10 Essential (primary) hypertension; Z86.16 Personal history of COVID-19; F39 Unspecified mood [affective] disorder; Z73.6 Limitation of activities due to disability; R53.1 Weakness; R27.8 Other lack of coordination; Z91.81 History of falling; R11.0 Nausea; E66.9 Obesity, unspecified; Z68.29 Body mass index [BMI] 29.0-29.9, adult
CPT/HCPCS: 36415; 70450-TC; 80048-TC; 80053-TC; 80061-TC; 80076-TC; 81001; 82962-TC; 85025-TC; 87081-TC; 87086-TC; 97116-TC; 97530-TC; C9803; G0480; J1885; Q0162